=== PATIENT | female | born 1980 | race Caucasian/White ===

== ENCOUNTER 2019-04-25 22:08 | Emergency (ER) | payer MEDICAID ==
[~2019-04-25] VITALS: Ht 162.6 cm; Wt 72.5 kg
[~2019-04-25 22:08] MED LIST: ACET500C5 PO
[2019-04-25 22:10] VITALS: Ht 162.6 cm; Wt 72.5 kg
[2019-04-25] MEDS ORDERED: DIPHTH/TET/ACEL PERTUSS (ADULT) 0.5 ML VIAL IM* ONE (23:30)
[2019-04-26 00:42] VITALS: BP 99/57; PULSE 71; RESP 18
== END 2019-04-25 23:46 | disposition home or self-care (01) ==
LOC: FTE 22:08
DX: O9A.219 Injury, poisoning and certain other consequences of external causes complicating pregnancy, unspecified trimester (principal); S61.012A Laceration without foreign body of left thumb without damage to nail, initial encounter; W26.0XXA Contact with knife, initial encounter; Y92.9 Unspecified place or not applicable; Z3A.00 Weeks of gestation of pregnancy not specified; Z23 Encounter for immunization
CPT/HCPCS: 12001; 90471; 90715; Z7502; Z7610